=== PATIENT | male | born 1990 | race Caucasian/White ===

== ENCOUNTER → 2024-05-16 | Outpatient (CLI) | payer OTHER ==
[~2024-05-16] MED LIST: Colace100 MG PO; Crutch1 EACH MISC; HYDHCL25 PO; Keflex500 MG PO; Norco 5-325 Ta1 EACH PO; Percocet 10-321 EACH PO; Percocet 5-3251 EACH PO; SULTRIDS PO; Zofran Odt4 MG SL
[2024-05-19 09:11] LABS: HIV 1,2 COMBO ANTIGEN/ANTIBODY Negative (Negative)
[2024-05-19 10:05] LABS: HEPATITIS B SURFACE ANTIGEN Negative (Negative)
[2024-05-19 10:08] LABS: HEPATITIS C AB CIA INTERP Negative (Negative); HEPATITIS C ANTIBODY CIA INDEX <0.02 IV
[2024-05-20 06:47] LABS: APTIMA MEDIA TYPE Urine; C. TRACHOMATIS BY TMA Negative (Negative); N. GONORRHOEAE BY TMA Negative (Negative); SPECIMEN SOURCE Urine; T. VAGINALIS BY TMA Negative (Negative)
== END ==
LOC: LAB 17:38 → LAB SHORT 17:38
PROVIDERS: Registered Nurse Community Health
DX: Z11.3 Encounter for screening for infections with a predominantly sexual mode of transmission (principal); Z20.2 Contact with and (suspected) exposure to infections with a predominantly sexual mode of transmission
CPT/HCPCS: 86592; 86803; 87340; 87389; 87491; 87591; 87661